=== PATIENT | male | born 1995 | race Caucasian/White ===

== ENCOUNTER 2019-11-08 17:20 | Emergency (ER) | payer BC, MEDICAID, SELFPAY ==
[2019-11-08 17:21] VITALS: BP 158/79; PULSE 89; RESP 18; TEMP 36.6; O2SAT 100; BMI 45.1
--- NOTE | 2019-11-08 17:26 | NURSING ---
NO OLD EKGS
--- NOTE | 2019-11-08 17:34 | EKG12_ITS ---
Test Reason : CP Blood Pressure : / mmHG Vent. Rate : 089 BPM Atrial Rate : 089 BPM P-R Int : 130 ms QRS Dur : 094 ms QT Int : 362 ms P-R-T Axes : -05 023 030 degrees QTc Int : 440 ms Normal sinus rhythm Normal ECG Confirmed by OLIVER BOSE, HEATHER ([id number]), graphics editor MY VAZQUEZ ([id number]) on 11/09/2019 2:45:40 PM Referred By: DC Confirmed By:HEATHER BOYD MD
--- NOTE | 2019-11-08 17:34 | RAD_ITS ---
STUDY: X-RAY CHEST REASON FOR EXAM: Male, 24 years old. CHEST PAIN TECHNIQUE: AP COMPARISON: None. FINDINGS: EKG leads project over the chest. The lungs are clear and expanded. There is no demonstrated pleural abnormality. Normal size heart. Normal mediastinum and brendan. Normal visualized pulmonary arteries. Normal visualized aortic arch and descending thoracic aorta. Normal visualized thoracic spine. Normal visualized ribs, clavicles, and shoulders. There is no demonstrated abnormality of the visualized soft tissue structures of the upper abdomen. RAD/Chest 1 View (Portable) IMPRESSION: Nonacute portable x-ray examination of the chest. Electronically Signed: Asher Barriga MD (Brooks) at 17:51 EDT , Service support ,
[2019-11-08 17:45] LABS: Absolute Neutrophil Count 5.1 X10^3/uL (2.0-7.7); Basophil# 0.08 X10^3/uL; Basophil% 0.9 % (0-1); Eosinophil# 0.19 X10^3/uL; Eosinophils% 2.2 % (0-5); Hematocrit 44.7 % (40-54); Hemoglobin 14.6 g/dL (13.0-16.5); Lymphocyte % 31.4 % (19-41); Mean Corp Hgb Conc 32.7 g/dL (32-36); Mean Corpuscular Hgb 26.8 pg (27.0-32.0); Mean Corpuscular Volume 82.2 fL (80-94); Mean Platelet Vol. 11.3 fl (6.2-12.0); Monocyte# 0.53 X10^3/uL; Monocyte% 6.2 % (0-10); NRBC Flagged by Analyzer 0 % (0-5); Neutrophil # 5.07 X10^3/uL (2.7-7.7); Neutrophil % 59.1 % (47-70); Platelet Count 302 K/mm3 (150-450); RBC Distribution Width CV 13.3 % (11.6-14.6); Red Blood Count 5.44 M/mm3 (4.6-6.2); White Blood Count 8.6 K/mm3 (4.4-11.0)
[2019-11-08] MEDS: Aspirin 81 MG TAB.CHEW 324 MG PO (17:50)
--- NOTE | 2019-11-08 17:51 | ED.RN ---
previously took asa. 3 given
[2019-11-08 18:02] LABS: Anion Gap 12 (5-15); BUN 11 mg/dL (7-18); BUN/Creat Ratio 10.3 RATIO (10-20); Calcium,Total 9.3 mg/dL (8.5-10.1); Chloride 101 mmol/L (98-107); Creatinine, Serum 1.07 mg/dL (0.70-1.30); EST Glomerular Filtration Rate 89 mL/min (>60); Est Glom Filt Rate - Afr Amer 107 mL/min (>60); Estimated Creatinine Clearance 121.64 ml/min; Glucose 122 mg/dL (74-106); Potassium 3.2 mmol/L (3.5-5.1); Sodium Level 138 mmol/L (136-145)
--- NOTE | 2019-11-08 18:20 | ED.DCSUM_ITS ---
History of Present Illness Chief Complaint: Chest Pain Informant: Patient Onset: Weeks Context: Sudden Onset Timing: Intermittent Quality: Chest pressure Location: Midsternal Current Severity: Mild Maximum Severity: Moderate Worsened by: Nothing Relieved by: Nothing Associated Symptoms: Nausea, dyspnea and diaphoresis Narrative: Patient is a 24-year-old male who has history of hypertension. He is a non- smoker. He denies alcohol drug use. He was diagnosed with COVID and Veronica. He was seen in outside facility and had an outpatient stress test. He had a regular stress test. He achieved heart rate. The stress test revealed no ischemia. The pain occurred at rest. He denies any recent infectious symptoms. He denies headache, ocular, visual auditory symptoms. He denies sore throat. He denies neck pain or neck stiffness. He denies food intolerance. Denies history of peptic ulcer disease, hiatal hernia or reflux. He denies black or maroon stool. He denies history of VTE. He denies leg pain or leg swelling. He denies discoloration of his legs. Prior similar symptoms: Yes Recent Illness/Hospitalization: Yes - Past Medical History (1) COVID-19 virus infection Status: Resolved (2) History of hypertension Status: Acute Past Medical History - Allergies and Home Meds Allergies/Adverse Reactions: Allergies acetaminophen [From Tylenol-Codeine] Allergy (Verified 11/08/19 17:25) NEEDS FOLLOW-UP codeine [From Tylenol-Codeine] Allergy (Verified 11/08/19 17:25) NEEDS FOLLOW-UP Primary Care Physician: Sonya Shah DO [Primary Care Provider] - Prior records reviewed: Yes Surgical History: no surgical history Lives: With Family Smoking Status: Never smoker Alcohol: None Drugs: None Review of Systems General: Denies: Chills, Fever, Malaise Eyes: Denies: Visual changes - bilaterally, Blurred Vision - bilaterally ENT: Denies: Rhinorrhea, Sore throat Cardiovascular: Reports: Chest pain Respiratory: Reports: Dyspnea Gastrointestinal: Reports: Nausea. Denies: Abdominal pain, Vomiting, Diarrhea, Constipation, Melena, Hematochezia, -, - Genitourinary: Denies: Dysuria, Hematuria, Frequency Musculoskeletal: Denies: Myalgias, Arthralgias, Neck pain, Back pain, Swelling, Extremity Pain, -, - Skin: Denies: Rash, Wounds Neurological: Denies: Headache, Weakness, Numbness Endocrine: Denies: Polyuria, Polydipsia Physical Exam Vital Signs/Narrative: Vital Signs Temp Pulse Resp BP Pulse Ox 11/08/19 17:21 97.8 F 89 18 158/79 H 100 Inital Vital Signs reviewed: Yes General: Well nourished, Well developed, Obese Head: Normocephalic, Atraumatic Eyes: Perrl, EOMI. Negative for: Pale conjunctiva, Scleral icterus ENT: Moist mucous membranes, No rhinorrhea Neck: Supple, Nontender, No lymphadenopathy, No JVD Cardiovascular: Regular rate, Regular rhythm, No murmurs, Normal S1, Normal S2 Respiratory: No distress, CTA bilaterally, Chest nontender Abdomen: Soft, Nontender, Nondistended, Normal bowel sounds Rectal: Deferred Back: Nontender, Normal Inspection Extremities: Nontender, No edema, - - There is no asymmetry, swelling, discoloration, leg vein distention, palpable cords or tenderness along the distribution of the deep venous system. Skin: Normal color, No rash, No Trauma. Negative for: Cyanosis, Diaphoresis, Jaundice Neurological: Alert, Oriented x3, Cranial nerves II-XII grossly intact, Normal Strength, Normal Sensation Psychological: Normal affect, Normal Mood Diagnostic/Tx/Re-eval Impressions Chest X-Ray 11/08/19 17:34 IMPRESSION: Nonacute portable x-ray examination of the chest. Electronically Signed: Asher Barriga MD (Brooks) at 17:51 EDT , Service support , 11/08/19 17:34 Chest 1 View (Portable) [RAD] Stat Laboratory Results 11/08/19 11/08/19 17:30 17:30 WBC 8.6 RBC 5.44 Hgb 14.6 Hct 44.7 MCV 82.2 MCH 26.8 L MCHC 32.7 RDW Std Deviation 39.0 RDW Coeff of Esthlea 13.3 Plt Count 302 MPV 11.3 Immature Gran % (Auto) 0.200 Neut % (Auto) 59.1 Lymph % (Auto) 31.4 Wilbarger % (Auto) 6.2 Eos % (Auto) 2.2 Baso % (Auto) 0.9 Absolute Neuts (auto) 5.1 Absolute Lymphs (auto) 2.70 Nucleated RBC % 0 Sodium 138 Potassium 3.2 L Chloride 101 Carbon Dioxide 25.0 Anion Gap 12 BUN 11 Creatinine 1.07 Estim Creat Clear Calc 121.64 Est GFR (MDRD) Af Amer 107 Est GFR (MDRD) Non-Af 89 BUN/Creatinine Ratio 10.3 Glucose 122 H Calcium 9.3 Troponin I < 0.015 Chest x-ray reviewed by me after radiologist interpreted as normal. Agree there is no abnormality noted. Since patient has been having chest pain after he was infected with COVID virus. This may represent myocarditis. He was referred to Dr. Charlie Taylor who is on for cardiology for possible outpatient echocardiogram and further diagnostic testing. ED Disposition - Plan for ED Patient: Disposition: Home or Assisted Living Diagnosis: Midsternal chest pain Referrals: Sonya Shah DO [Primary Care Provider] - 1-2 Weeks Donato Taylor MD [STAFF PHYSICIAN] - 5-7 Days
[2019-11-08 18:31] VITALS: BP 151/73; PULSE 70; RESP 15; O2SAT 100
== END 2019-11-08 18:36 | disposition home or self-care (01) ==
PROVIDERS: Emergency Provider Emergency Medicine; PCP Family Medicine
DX: R07.2 Precordial pain (principal); I10 Essential (primary) hypertension; Z88.5 Allergy status to narcotic agent; Z88.6 Allergy status to analgesic agent; E66.9 Obesity, unspecified; Z86.19 Personal history of other infectious and parasitic diseases
CPT/HCPCS: 71045; 80048; 84484; 85025; 93005; 99285

== ENCOUNTER → 2019-11-23 10:28 | Outpatient (CLI) | payer BC, MEDICAID, SELFPAY ==
[2019-11-11 10:51] VITALS: BMI 44.1
--- NOTE | 2019-11-23 10:34 | ECHOCS_ITS ---
Reason For Study: CHEST PAIN Procedure This was a 2D Doppler, Color Flow transthoracic echocardiogram. The study was technically difficult. Contrast injection was performed. Exam performed in department. Left Ventricle Normal LV size. The estimated ejection fraction is 55 %. Normal diastology for age. No regional wall motion abnormalities noted. Right Ventricle Normal RV size. Normal systolic function. Atria Normal left atrium. Normal right atrium. No doppler evidence for ASD. Mitral Valve There is no mitral valve stenosis. Trivial mitral valve insufficiency. Tricuspid Valve There is no tricuspid stenosis. Trivial tricuspid valve insufficiency. Unable to estimate RV systolic pressure due to insufficient tricuspid regurgitant envelope. Aortic Valve Trisinus/trileaflet aortic valve. There is no aortic stenosis. No aortic valve insufficiency. Pulmonic Valve There is no pulmonic valvular stenosis. No pulmonic valve insufficiency. Great Vessels Normal aortic root. Pericardium/Pleural No pericardial effusion. Medication 22 gauge I.V. with prn adaptor inserted into right arm. Diluted definity 4.0ml given slow IV push to enhance endocardial definition. MMode/2D Measurements & Calculations RVDd: 4.3 cm Ao root diam: 2.9 cm LAV(MOD-bp): 43.3 ml LAV(MOD-bp) Indexed: 16.1 ml/m2 LAV(MOD-sp2): 45.5 ml LAV(MOD-sp4): 42.1 ml EDV(MOD-sp4): 137.0 ml EDV(MOD-sp2): 121.2 ml SV(MOD-sp4): 76.2 ml ESV(MOD-sp4): 60.8 ml EF(MOD-sp2): 50.6 % EF(MOD-sp4): 55.6 % SV(MOD-sp2): 61.3 ml LA dimension(2D): 4.6 cm LA A4 area: 16.8 cm2 RA A4 area: 16.4 cm2 Doppler Measurements & Calculations Lat Peak E' Inder: 24.4 cm/sec Med Peak E' Inder: 12.8 cm/sec Ao V2 max: 136.1 cm/sec Ao max P.4 mmHg LV V1 max: 117.1 cm/sec PA V2 max: 146.4 cm/sec LV V1 max P.5 mmHg Interpretation Summary The estimated ejection fraction is 55 %. Normal diastology for age. Trivial mitral valve insufficiency. The study was technically difficult. Contrast injection was performed. Ordering Physician: Gianluca Pena Referring Physician: Sonya TIRADO Performed By: Sydnie Wolfe RDCS, RVT
--- NOTE | 2019-11-23 11:40 | CT_ITS ---
STUDY: CT CHEST WITHOUT CONTRAST REASON FOR EXAM: Male, 24 years old. CHEST PAIN, CARDIAC-OVER READ ONLY RADIATION DOSAGE (If Supplied By Facility): CTDIvol = ( 17 ) mGy, DLP = ( 1382.54 ) mGycm TECHNIQUE: Transaxial imaging was performed without the administration of intravenous contrast material. Cardiac or renal examination. Individualized dose optimization techniques were used for this CT. COMPARISON: None. FINDINGS: The lungs are normal. There is no demonstrated pleural abnormality. Normal heart and pericardium. Normal mediastinum. Normal hilar regions. Normal unenhanced pulmonary arteries. Normal aorta arch and descending thoracic aorta. Normal osseous structures. There is no demonstrated abnormality of the visualized upper abdomen. CT/Limited Chest CT w/CCTA IMPRESSION: Normal unenhanced CT Chest examination. Electronically Signed: Derrick Marr, at 14:10 EDT , Service support ,
[2019-11-23 11:56] VITALS: BP 148/84; PULSE 56; RESP 14; TEMP 37.1; O2SAT 98; BMI 42.3
[2019-11-23 12:15] VITALS: BP 148/84; PULSE 56
[2019-11-23] MEDS: Nitroglycerin SL (ED/IMG/CATH) 0.4 MG TABLET SUBLINGUAL (12:15)
[2019-11-23 12:23] VITALS: BP 144/70; PULSE 58; RESP 14; O2SAT 99
--- NOTE | 2019-12-03 16:49 | CCTA.WCONT ---
CCTA w/Cont Coronary Arteries Date of Study:: 11/23/19 Chest pain Consent:: After informed consent was obtained the patient was brought to the radiolog The patient was prepped and draped in the usual manner and placed in the CT gantry. Initial CT scan was performed with calcium scoring. The patient then was administered 100 cc of Visipaque and then after appropriate positioning underwent CT angiogram with gating. The images were then reconstructed and compared for getting 0.65 mm slices. The images were displayed. Image quality was decent but bolus target dose was suboptimal. LEFT MAIN CORONARY ARTERY: Normal [] LEFT ANTERIOR DESCENDING CORONARY ARTERY: No significant stenosis noted. The left coronary ostium arises from the left coronary cusp [] LEFT CIRCUMFLEX CORONARY ARTERY: No significant stenosis noted [] RIGHT CORONARY ARTERY: No significant started stenosis noted. The right coronary ostium arises from the right coronary cusp [] CORONARY CALCIUM SCORE: [address] angiogram of the coronary arteries. Normal origin anatomically of the coronary arteries. []
== END ==
PROVIDERS: PCP Family Medicine; Referring Provider Specialist; Visit Provider Specialist
DX: R07.9 Chest pain, unspecified (principal)
CPT/HCPCS: 75574; 76380; 93306; Q9957; Q9967; A4216; C8929

== ENCOUNTER 2019-12-29 11:45 | Emergency (ER) | payer MEDICAID, SELFPAY ==
[2019-12-09 14:35] VITALS: BMI 45.0
[2019-12-29 11:46] VITALS: BP 136/85; PULSE 65; RESP 16; TEMP 36.3; O2SAT 100; BMI 44.3
--- NOTE | 2019-12-29 11:55 | EKG12_ITS ---
Test Reason : CP Blood Pressure : / mmHG Vent. Rate : 063 BPM Atrial Rate : 063 BPM P-R Int : 140 ms QRS Dur : 096 ms QT Int : 386 ms P-R-T Axes : 022 008 011 degrees QTc Int : 395 ms Normal sinus rhythm Normal ECG Confirmed by OLIVER BOSE, HEATHER ([id number]), editor city [place] ([id number]) on 12/30/2019 9:39:42 AM Referred By: BB Confirmed By:HEATHER BOYD MD
--- NOTE | 2019-12-29 11:58 | ED.VIS.CHEST ---
History of Present Illness Chief Complaint: Chest Pain Informant: Patient Onset: Hours - 1.5 Activity at onset: Rest Timing: Continuous Quality: Pressure Location: Left Chest - Without radiation Current Severity: Moderate Maximum Severity: Moderate Worsened By: Breathing - At times Associated Symptoms: Dyspnea, Palpitations - At times but not always associated with chest discomfort. Currently not present.. Negative for: Nausea, Vomiting, Diaphoresis, Cough, Fever, Lightheadedness Narrative: Patient has been having this chest discomfort for several months off and on. Today is a particularly severe episode, and lasting a little longer than usual, for the past 1.5 hours. He has anxiety. He took some Atarax, it did not make the pain go away. He was diagnosed with COVID when he first had this discomfort, he did not have pneumonia with it that he knows of, he did not require oxygen, and he did not require hospitalization. He recovered from COVID but is still been having this discomfort intermittently. He followed up with cardiology, he currently has an event monitor on that has been present for 2 weeks, he states he gets this chest discomfort almost daily. His dry plasterer helper does not think this is cardiac, and has also referred him to pulmonology, he has not seen them yet. He denies any new symptoms. No leg pain or swelling. He had a coronary CTA that was negative/normal 3-4 weeks ago. Prior Similar Symptoms: Yes - Since diagnosed with COVID 2-3 months ago Recent Illness/Hospitalization: No - Past Medical History (1) Anxiety Status: Chronic (2) Essential hypertension Status: Chronic (3) DOMITILA on CPAP Status: Chronic Past Medical History - Allergies and Home Meds Allergies/Adverse Reactions: Allergies acetaminophen [From Tylenol-Codeine] Allergy (Verified 12/29/19 11:45) NEEDS FOLLOW-UP codeine [From Tylenol-Codeine] Allergy (Verified 12/29/19 11:45) NEEDS FOLLOW-UP Primary Care Physician: Sonya Shah DO [Primary Care Provider] - Surgical History: no surgical history Lives: With Family Smoking Status: Never smoker Review of Systems General: Denies: Chills, Fever, Sweats Eyes: Denies: Visual changes - bilaterally, Diplopia ENT: Denies: Rhinorrhea, Sore throat Cardiovascular: Reports: Chest pain, Palpitations Respiratory: Reports: Dyspnea. Denies: Cough, Dyspnea on exertion Gastrointestinal: Denies: Abdominal pain, Nausea, Vomiting, Diarrhea, Melena, Hematochezia Genitourinary: Denies: Dysuria, Hematuria, Frequency Musculoskeletal: Reports: Back pain - chronic, mild, lower. Denies: Myalgias, Swelling, Extremity Pain Skin: Denies: Rash, Wounds Neurological: Denies: Headache, Weakness, Numbness Psych: Reports: Anxiety. Denies: Suicidal thoughts Physical Exam Vital Signs/Narrative: Vital Signs Temp Pulse Resp BP Pulse Ox 12/29/19 11:46 97.3 F L 65 16 136/85 H 100 Inital Vital Signs reviewed: Yes General: Well nourished, Well developed, Obese, No Acute Distress Head: Normocephalic, Atraumatic Eyes: Perrl, EOMI ENT: Moist mucous membranes, No rhinorrhea Neck: Supple, Nontender, No lymphadenopathy, No JVD Cardiovascular: Regular rate, Regular rhythm, No murmurs Respiratory: No distress, CTA bilaterally, Chest nontender Abdomen: Soft, Nontender, Nondistended, Normal bowel sounds Back: Nontender, Normal Inspection Extremities: Nontender, No edema. Negative for: Calf Tenderness Skin: Normal color, No rash, No Trauma Neurological: Alert, Oriented x3, Cranial nerves II-XII grossly intact, Normal Strength, Normal Sensation Psychological: Normal affect, Normal Mood Diagnostic/Tx/Re-eval Impressions Chest CTA 12/29/19 13:15 IMPRESSION: Normal CTA chest examination, without a demonstrated pulmonary embolism or arterial dissection. Electronically Signed: Juan Manuel Laguna DO at 14:23 EDT Tel [phone], Service support , 12/29/19 13:15 CTA Chest W/WO Contrast [CT] Stat Laboratory Results 12/29/19 12/29/19 11:55 11:55 WBC 7.5 RBC 4.98 Hgb 13.5 Hct 42.5 MCV 85.3 MCH 27.1 MCHC 31.8 L RDW Std Deviation 40.1 RDW Coeff of Esthela 13.0 Plt Count 271 MPV 11.1 Immature Gran % (Auto) 0.800 Neut % (Auto) 59.5 Lymph % (Auto) 28.7 Rock % (Auto) 6.7 Eos % (Auto) 3.4 Baso % (Auto) 0.9 Absolute Neuts (auto) 4.4 Absolute Lymphs (auto) 2.14 Nucleated RBC % 0 Sodium 138 Potassium 3.7 Chloride 104 Carbon Dioxide 28.0 Anion Gap 6 BUN 15 Creatinine 1.00 Estim Creat Clear Calc 130.15 Est GFR (MDRD) Af Amer 116 Est GFR (MDRD) Non-Af 96 BUN/Creatinine Ratio 15.0 Glucose 85 Calcium 9.5 Troponin I < 0.015 - Rhythm Strip Rhythm Strip: Sinus Rhythm Rate: 63 Ectopy: None - EKG Initial EKG Interpretation: Sinus Rhythm, No Acute Injury Pattern - normal ekg Treatment: GI Cocktail ОЛЕГ Risk: No Positive ОЛЕГ Elements Score: 0 - Medical Decision Making Labs are unremarkable, EKG is normal, and a perform CT angiography of the chest to rule out PE which she has not had yet, and it is negative. Patient is reassured, I feel he can safely be discharged home given his normal vital signs and lack of hypoxemia to follow-up as scheduled. ED Disposition - Plan for ED Patient: Disposition: Home or Assisted Living Diagnosis: Left-sided chest pain Instructions: ED Chest Pain Atypical Unkn Cause Referrals: Sonya Shah DO [Primary Care Provider] - (And/or cardiology, pulmonology, as directed)
[2019-12-29 12:08] LABS: Absolute Lymphocyte Count 2.14 X10^3/uL (0.83-4.51); Absolute Neutrophil Count 4.4 X10^3/uL (2.0-7.7); Basophil# 0.07 X10^3/uL; Basophil% 0.9 % (0-1); Eosinophil# 0.25 X10^3/uL; Eosinophils% 3.4 % (0-5); Hematocrit 42.5 % (40-54); Hemoglobin 13.5 g/dL (13.0-16.5); Lymphocyte # 2.14 X10^3/ul (4.0); Lymphocyte % 28.7 % (19-41); Mean Corp Hgb Conc 31.8 g/dL (32-36); Mean Corpuscular Hgb 27.1 pg (27.0-32.0); Mean Corpuscular Volume 85.3 fL (80-94); Mean Platelet Vol. 11.1 fl (6.2-12.0); Monocyte% 6.7 % (0-10); NRBC Flagged by Analyzer 0 % (0-5); Neutrophil # 4.44 X10^3/uL (2.7-7.7); Neutrophil % 59.5 % (47-70); Platelet Count 271 K/mm3 (150-450); RBC Distribution Width SD 40.1 fl (35.1-43.9); Red Blood Count 4.98 M/mm3 (4.6-6.2); White Blood Count 7.5 K/mm3 (4.4-11.0)
[2019-12-29] MEDS: Mag Hydrox/Al Hydrox/Simeth 30 ML UDC PO (12:16)
[2019-12-29 12:25] LABS: Anion Gap 6 (5-15); BUN 15 mg/dL (7-18); Calcium,Total 9.5 mg/dL (8.5-10.1); Chloride 104 mmol/L (98-107); EST Glomerular Filtration Rate 96 mL/min (>60); Est Glom Filt Rate - Afr Amer 116 mL/min (>60); Estimated Creatinine Clearance 130.15 ml/min; Glucose 85 mg/dL (74-106); Potassium 3.7 mmol/L (3.5-5.1); Sodium Level 138 mmol/L (136-145)
[2019-12-29 13:00] VITALS: BP 127/61; PULSE 59; RESP 25; O2SAT 99
--- NOTE | 2019-12-29 13:15 | CT_ITS ---
STUDY: CTA CHEST REASON FOR EXAM: Male, 24 years old. LEFT SIDE CHEST PAIN. PATIENT HAD COVID. HTN WITH ASTHMA RADIATION DOSAGE (If Supplied By Facility): CTDIvol = ( 12.66 ) mGy, DLP = ( 608.72 ) mGycm TECHNIQUE: The examination was performed with the intravenous administration of IV 100mL Isovue-370. Post-processing of the angiographic images was performed, with multiplanar reformation and 3D reconstruction. Individualized dose optimization techniques were used for this CT. COMPARISON: None. FINDINGS: Normal enhancement of the main pulmonary artery and right and left pulmonary arteries. Normal enhancement of the bilateral peripheral pulmonary arteries. There is no demonstrated pulmonary embolism. Normal thoracic aorta and visualized great vessels. There is no demonstrated aortic dissection. Normal heart and pericardium. Normal mediastinum. Normal hilar regions. Normal visualized trachea and bronchi. The lungs are well expanded. Normal pulmonary parenchyma. Normal pleura. Normal chest wall structures. Normal osseous structures. Normal visualized upper abdomen. CT/CTA Chest W/WO Contrast IMPRESSION: Normal CTA chest examination, without a demonstrated pulmonary embolism or arterial dissection. Electronically Signed: Juan Manuel Laguna DO at 14:23 EDT Tel [phone], Service support ,
[2019-12-29 15:00] VITALS: BP 139/65; PULSE 54; RESP 15; O2SAT 100
[2019-12-29 15:33] VITALS: BP 139/65; PULSE 54; RESP 15; O2SAT 100
== END 2019-12-29 15:33 | disposition home or self-care (01) ==
PROVIDERS: Emergency Provider Emergency Medicine; PCP Family Medicine
DX: R07.89 Other chest pain (principal); E66.9 Obesity, unspecified; G47.33 Obstructive sleep apnea (adult) (pediatric); F41.9 Anxiety disorder, unspecified; I10 Essential (primary) hypertension; Z88.5 Allergy status to narcotic agent; Z88.6 Allergy status to analgesic agent
CPT/HCPCS: 71275; 80048; 84484; 85025; 93005; 99284; J7030; Q9967; A4216

== ENCOUNTER → 2020-02-02 10:30 | Outpatient (CLI) | payer MEDICAID, SELFPAY ==
[2020-01-05 13:41] VITALS: BMI 47.5
--- NOTE | 2020-02-02 16:24 | PFTCOMP_ITS ---
COMPLETE PULMONARY FUNCTION TEST INTERPRETATION Brief HPI: Patient is a 24 year old male, currently under the care of Dr. Guzman, who presents to [facility] for complete pulmonary function tests secondary to diagnosis of dyspnea. Respiratory therapist reports good effort and reproducible results. Interpretation: Forced expiration spirometry shows no large airways obstructive ventilatory defect with an FEV1 of 105% predicted. There is no significant bronchodilator response by strict ATS criteria. Spirograms are of good quality and plateau normally. The respiratory flow volume loop shows a normal pattern. Lung volumes by body plethysmography show a normal total lung capacity at 7.44 L, 92% predicted. All other lung volumes are within normal limits. Diffusion capacity by carbon monoxide is normal at 92% predicted. The airway resistance is normal. No previous pulmonary function tests were available for review. Impression: Normal pulmonary function testing
== END ==
PROVIDERS: PCP Family Medicine; Referring Provider Internal Medicine Critical Care Medicine; Visit Provider Internal Medicine Critical Care Medicine
DX: R06.02 Shortness of breath (principal)
CPT/HCPCS: 94060; 94726; 94729

== ENCOUNTER → 2020-02-04 13:25 | Outpatient (CLI) | payer MEDICAID, SELFPAY ==
[2020-01-05 13:41] VITALS: BMI 47.5
[2020-02-04 13:45] VITALS: PULSE 102; PULSE 103; PULSE 104; PULSE 106; PULSE 68; PULSE 71; PULSE 99; O2SAT 94; O2SAT 95; O2SAT 96; O2SAT 97; O2SAT 98
--- NOTE | 2020-02-04 17:46 | PCM.PSN.6M ---
PSN 6 Minute Walk Test - 6 Minute Walk Test 6 Minute Walk Test: 6 Minute Walk Test PSN:6-Minute Walk Test Start: 02/04/20 13:49 Freq: Status: Active Protocol: [id number] Document 02/04/20 13:45 [facility] (Rec: 02/04/20 13:53 [facility] [id number]) 6 Minute Walk Test Date Performed 02/04/20 Time Performed 13:45 Height 6 ft 2 in Weight: 158.757 kg Weight in Pounds 350.[address]: Dr Guzman Assistive device used: None Pre-test Oxygen Delivery Method Room Air Pulse Ox (%) 96 Pulse Rate (60-100 beats/min) 68 Dyspnea Loraine Scale (0-10) 0 Exertion Loraine Scale (6-20) 6 1st minute Oxygen Delivery Method Room Air Pulse Ox (%) 96 Pulse Rate (60-100 beats/min) 99 2nd minute Oxygen Delivery Method Room Air Pulse Ox (%) 98 Pulse Rate (60-100 beats/min) 104 H 3rd minute Oxygen Delivery Method Room Air Pulse Ox (%) 94 Pulse Rate (60-100 beats/min) 106 H 4th minute Oxygen Delivery Method Room Air Pulse Ox (%) 95 Pulse Rate (60-100 beats/min) 102 H 5th minute Oxygen Delivery Method Room Air Pulse Ox (%) 94 Pulse Rate (60-100 beats/min) 103 H 6th minute Oxygen Delivery Method Room Air Pulse Ox (%) 96 Pulse Rate (60-100 beats/min) 99 Dyspnea Loraine Scale (0-10) 0.5 Exertion Loraine Scale (6-20) 10 Post-test Oxygen Delivery Method Room Air Pulse Ox (%) 97 Pulse Rate (60-100 beats/min) 71 Full Laps Walked 24 Partial Lap, Number of Tiles Walked 29 Total Distance Walked (ft) 1445 - Interpretation Interpretation: The patient was able to ambulate 1445 feet over the course of 6 minutes on room air with no assistive devices or breaks. The patient did not have significant desaturation, but did have a peak heart rate of 106 bpm. These findings are consistent with deconditioning. - Recommendations Recommendations: No supplemental oxygen is indicated at this time.
== END ==
PROVIDERS: PCP Family Medicine; Referring Provider Internal Medicine Critical Care Medicine; Visit Provider Internal Medicine Critical Care Medicine
DX: R06.02 Shortness of breath (principal)
CPT/HCPCS: 94618